=== PATIENT | male | born 1955 | race African-American/Black ===

== ENCOUNTER 2019-04-19 08:07 | Day surgery (SDC) | payer OTHER ==
[~2019-04-19 08:07] MED LIST: BACITRACIN 15 GM TUBE TOPICAL OINTMENT TP ONE
[2019-04-19 08:38] VITALS: BMI 28.7
--- NOTE | 2019-04-19 09:31 | OP ---
Operative Note - Note: Operative Date: 04/19/19 Operation: prostate cryoablation and cystoscopy Post-Operative Diagnosis: Same as Pre-op Surgeon: Joe Eastman Anesthesiologist/FILLING AND STAPLING MACHINE OPERATOR: Iveth Linder Anesthesia: General Estimated Blood Loss (mls): 0 Drains & Tubes with Location: 18 fr graves Operative Report Dictated: Yes
[2019-04-19] MEDS ORDERED: MIDAZOLAM HCL 2 MG/2 ML SINGLE DOSE VIAL ONE (09:36)
[2019-04-19] MEDS ORDERED: ceFAZolin 2 GRAM PREMIX BAG IVPB ONE (09:42)
[2019-04-19] MEDS ORDERED: LIDOCAINE HCL/PF 2% SDV 5ML VIAL ONE (10:02)
[2019-04-19] MEDS ORDERED: ceFAZolin SODIUM 1 GM VIAL ONE ×2 (10:02)
[2019-04-19] MEDS ORDERED: PROPOFOL 20 ML ONE ×2 (10:04)
[2019-04-19] MEDS ORDERED: ePHEDrine SULFATE 50 MG/1 ML AMPULE ONE (10:04)
[2019-04-19] MEDS ORDERED: BACITRACIN 15 GM TUBE TOPICAL OINTMENT ONE (10:21)
[2019-04-19] MEDS ORDERED: BACITRACIN 15 GM TUBE TOPICAL OINTMENT TP ONE (11:00)
[2019-04-19] MEDS ORDERED: oxyCODONE HCL 5 MG TABLET PO PRN (12:09)
[2019-04-19] MEDS ORDERED: ONDANSETRON 4 MG/2 ML VIAL IVPUSH PRN (12:09)
[2019-04-19] MEDS ORDERED: LACTATED RINGERS SOLUTION 1,000 ML IV SCH (12:15)
--- NOTE | 2019-04-19 13:42 | OP ---
DATE OF OPERATION: 04/19/2019 PREOPERATIVE DIAGNOSIS: Prostate cancer. POSTOPERATIVE DIAGNOSIS: Prostate cancer. PROCEDURE: Prostate cryoablation and cystoscopy. SURGEON: Joe Eastman MD TRANSISTOR TESTER: None. ANESTHESIA: General via laryngeal mask. ANESTHESIOLOGIST: PRISCA Almanzar SPECIMENS: None. CULTURES: None. DRAINS: 18-Cambodian Rodrigues catheter. ESTIMATED BLOOD LOSS: Negligible. COMPLICATIONS: None. DESCRIPTION OF PROCEDURE: Patient was brought into the operating room. Placed on the operating room table in a supine position. After administration of general anesthesia via laryngeal mask, intravenous antibiotics were administered. Sequential compression devices were placed. Patient was placed in dorsal lithotomy position. The perineum was shaved 1st, and the genitals and perineum were prepped and draped in the usual sterile manner. An 18-Cambodian Rodrigues catheter was placed per urethra, 10 mL was placed in the balloon. Urine was evacuated. Now the bladder was filled with approximately 350 mL of sterile normal saline and clamped. An [place] drape was placed. Transrectal ultrasound was inserted into the rectum, and transrectal ultrasound of the prostate was done and a plan was created for focal right-sided cryoablation. Once the plan was created, the 3 cryo probes were placed in the appropriate locations under ultrasound guidance then 2 temperature sensors were placed, 1 in [place]illiers fascia, 1 in the external sphincter. Once all the probes and temperature sensors were inserted, Rodrigues catheter was removed. Flexible cystoscopy was performed. Demonstrated normal anterior urethra. The prostatic urethra demonstrated no probes had penetrated the urethra. There was moderate bilobar occlusion. The bladder was entered, thoroughly inspected. There were no foreign bodies, tumors, stones, inflammation. Both ureteral orifices were in their usual location with clear efflux bilaterally. The scope was retroflexed, and no probes could be seen entering the bladder. Now the bladder was left full. A Super Stiff guidewire was inserted through the cystoscope into the bladder and the cystoscope removed. Urethral warmer was now passed over the Super Stiff guidewire into the bladder and guidewire was removed. Urethral warming was started. Now measurements were taken, and the probes were set to the appropriate measurements. Their position was reconfirmed under ultrasound guidance. Now 2 freeze/thaw cycles were done, and excellent ablation was achieved on the right side of the prostate. At the end of the procedure, the cryoablation probes and temperature sensors were removed. Hemostasis was assured with digital manual pressure on the perineum. The urethral warmer was left an additional 5 minutes and then removed, and an 18-Cambodian Rodrigues catheter was placed. The wound was sterilely dressed with bacitracin, 4 x 4, and Tegaderm. Rodrigues catheter drainage was clear at the end of the procedure. Tolerated the procedure well, transferred to the recovery in stable condition. Ramiro [id number]
[2019-04-19 14:42] VITALS: BP 139/99; PULSE 71; TEMP 97.9
== END 2019-04-19 14:00 | disposition home or self-care (01) ==
LOC: JASU-SURG 08:07
PROVIDERS: ATTEND Urology
PROC: 0V503ZZ Destruction of Prostate, Percutaneous Approach (ICD-10-PCS; principal; 2019-04-19 08:00)
DX: C61 Malignant neoplasm of prostate (principal)
CPT/HCPCS: 55873; C2618; 94760